=== PATIENT | female | born 1990 | race Caucasian/White ===

== ENCOUNTER 2024-01-14 17:21 | Inpatient (IN) ==
[2024-01-14] MEDS ORDERED: ACETAMINOPHEN 325 MG TAB PO PRN (17:53)
[2024-01-14 18:49] LABS: Basophils # (auto) 0.04 K/uL (0.00-0.20); Basophils % (auto) 0.4 %; Eosinophils % (auto) 0.9 %; Hematocrit (blood only) 40.6 % (37.0-47.0); Hemoglobin 13.5 g/dl (12.0-16.0); Immature Granulocytes # (auto) 0.28 K/uL (0.01-0.20); Immature Granulocytes % (auto) 2.5 %; Lymphocytes # (auto) 1.27 K/uL (1.20-3.40); Lymphocytes % (auto) 11.1 %; Mean Corpuscular Hemoglobin 30.2 pg (25.0-34.0); Mean Corpuscular Hgb Conc 33.3 g/dL (32.0-36.0); Mean Corpuscular Volume 90.8 fL (80.0-100.0); Mean Platelet Volume 11.4 fL (9.4-12.4); Monocytes # (auto) 0.81 K/uL (0.11-0.59); Monocytes % (auto) 7.1 %; Platelet Count 187 K/uL (130-400); RDW Coefficient of Variation 13.2 % (11.5-14.5); RDW Standard Deviation 43.4 fL (36.4-46.3); Red Blood Count 4.47 M/uL (4.20-5.40)
[2024-01-14 19:02] LABS: Albumin Globulin Ratio 1.1 (0.9-2); Albumin Level 3.4 gm/dl (3.4-5.0); BUN Creatinine Ratio 16.7 (10-20); Bilirubin,Total 0.3 mg/dl (0.2-1.0); Calcium 9.7 mg/dl (8.6-10.3); Creatinine Clr Calc Pharmacy 137.4 ml/min; Globulin 3.2 gm/dl (2.5-4.0); Potassium 3.8 mmol/L (3.5-5.1); Total Protein 6.6 gm/dl (6.0-8.3)
[2024-01-14] MEDS ORDERED: OXYTOCIN 30 UNITS/NSS 30 UNITS/500 ML BAG IV PRN (21:04)
[2024-01-14] MEDS ORDERED: LIDOCAINE 1% LOCAL 20 ML VIAL INFIL PRN (21:04)
--- NOTE | 2024-01-14 21:04 | History & Physical Report ---
Date of Service January 14, 2024 Assessment & Plan (1) 38 weeks gestation of : (2) Gestational hypertension: (3) Positive GBS test: Plan admit, iv, labs already reviewed. will send urine prot/creat ratio. begin pitocin and pcn. arom when appropriate. pt agrees. will allow diet as has not eaten History of Present Illness Chief Complaint: induction Primary Care Provider: Damarislesly Bo 33yo at 38+wks ega presents to LD after being seen in office with elevated bp, now meeting criteria for diagnosis of gest htn. She denies ling currently but has had mild ling off and on since weekend, never enough to take meds. No rom, no vb. +FM. Some nausea but no ruq tenderness. She had bp elevated after sitting twice now in past 4hrs at least and aware of recommendations for induction and agrees. PNC c/b 1. gbs pos 2. ирина 3 2002 PNL rhpos, ri, gbs pos OBH: x 1, this new FOB GYNH: hx of ирина 3, no stds Allergies Allergy/AdvReac Type Severity Reaction Status Date / Time No Known Allergies Allergy Verified 01/14/24 16:40 Home Medications Medication Instructions Recorded Confirmed Type prenat.vits,fish,qrk-lpal-lnhcp 1 tab PO DAILY 06/04/23 01/14/24 History Patient History Medical History (Updated 01/14/24 @ 21:03 by Deneen Garcia MD, FACOG) Migraines no aura or neuro sx Surgical History (Updated 01/14/24 @ 18:37 by Viviana Brumfield RN) H/O LEEP 2022 History of breast augmentation History of wisdom tooth extraction Family History (Updated 01/14/24 @ 18:02 by Viviana Brumfield RN) Grandmother (Maternal) Breast cancer Grandmother (Paternal) Diabetes Breast cancer Hypertension Aunt Ovarian cancer Aunt No problems noted. Father Hypertension Other Thyroid disease Denies family history of Prostate cancer Myocardial infarction Colorectal cancer Social History (Updated 06/04/23 @ 11:10 by Belle Richards) Smoking Status: Never smoker Second Hand Exposure: No; Do You Dip or Chew Tobacco: No; Hx Alcohol Use: No Hx Substance Use: No Preferred Language: Armenian Communication Ability: Effective Specialty Person Required: No Beliefs That Will Affect Care: None marital status: marital status details: Lit (34) [phone] Current Living Situation: Spouse and Family Current Living Situation Comment: and daughter current occupational status: employed current occupation: RN How many Children do You have: 1 Feels Safe at Home: Yes Safety Concerns: Feels Safe At This Time Diet: regular Physical Activity Frequency: 3-4 Times per Week Review of Systems as per Subjective / HPI Physical Exam Constitutional: WD/WN, vitals as above Respiratory: normal respiratory effort, lungs clear to auscultation Cardiovascular: Rate/Rhythm: regular rate and regular rhythm Gastrointestinal (Abdomen): soft gravid nt, no ruq pain efw 7-8# cephalic by u/s Musculoskeletal: tr edema nontender calves Neurologic: DTRs patellar +2, no clonus Psychiatric: A+Ox3, euthymic affect Genitourinary: Manual OB Exam: + cervical dilation 3 cm, + cervical effacement (75%) and + station -2 OB Exam Monitor Tracing: + external FHT monitor used, + external uterine monitor used, + category I and + normal FHT variability Results & Data Vital Signs (Past 12 Hours) Vital Signs Temp Pulse Resp BP 01/14/24 20:45 96 H 140/90 01/14/24 19:10 98.1 F 20 01/14/24 19:10 20 01/14/24 18:09 85 141/97 H 01/14/24 17:57 98.4 F 85 18 141/97 H 01/14/24 17:46 98.1 F 01/14/24 17:38 78 139/89 Coding Level of Care Code None Diagnoses 38 weeks gestation of Z3A.38 Gestational hypertension O13.9 Positive GBS test B95.1
[2024-01-14] MEDS: PENICILLIN GK 6 MU in SODIUM CHLORIDE 0.9% 250 ML IV STA (21:34)
[2024-01-14] MEDS: OXYTOCIN 30 UNITS/NSS 30 UNITS/500 ML BAG IV PRN (22:12)
[2024-01-14 22:36] LABS: Creatinine Urine Random 12.8 mg/dl; Total Protein Urine Random < 4.0 mg/dl (0-11.9)
[2024-01-15] MEDS: CALCIUM CARBONATE 500 MG CHEWABLE TAB PO PRN ×2 (00:32→17:18)
[2024-01-15] MEDS: PENICILLIN GK 3 MU in DEXTROSE 5% 100 ML IV PRN (01:24)
[2024-01-15] MEDS: fentANYL 2 MCG/ML BUPIVacaine 0.125%-NSS 100ML BAG ONE (02:05)
[2024-01-15] MEDS: LIDOCAINE 2%/EPINEPHRINE 1:200,000 20 ML PF ONE (02:05)
[2024-01-15] MEDS: fentaNYL citrate PF 100 MCG/2 ML VIAL ONE (02:18)
[2024-01-15] MEDS: BUPIVACAINE 0.25% PF 30 ML VIAL ONE (02:18)
[2024-01-15] MEDS: SODIUM CHLORIDE 0.9% PF INJ 10 ML VIAL ONE (02:18)
--- NOTE | 2024-01-15 02:22 | Anesthesiology Consultation ---
Date of Service January 15, 2024 Assessment & Plan Chart Review Chart Review: Acceptable Risk for Labor Epidural Consults Requested none History Height/Weight Height: 5 ft 5 in Weight: 95.708 kg Allergies Allergy/AdvReac Type Severity Reaction Status Date / Time No Known Allergies Allergy Verified 01/14/24 16:40 Medications Home Medications Medication Instructions Recorded Confirmed Last Taken prenat.vits,fish,kkt-ppmr-rtide 1 tab PO DAILY 06/04/23 01/14/24 01/13/24 20:30 Active Medications Generic Name Dose Route Start Last Admin Trade Name Freq PRN Reason Stop Dose Admin Calcium Carbonate 500 mg 01/14/24 17:53 01/15/24 00:32 Calcium Carbonate 500 Mg Chewable Tab PO 02/13/24 17:52 500 mg Q6H PRN Administration Indigestion Penicillin G Potassium 3 mu/ 106 mls @ 100 mls/hr 01/15/24 00:04 01/15/24 01:24 Dextrose IV 01/25/24 00:03 100 mls/hr Q4H PRN Administration GBS(+) Until Delivery Oxytocin 30 units in 500 mls @ 9 mls/hr 01/14/24 21:04 01/15/24 01:30 Pitocin 30 Units/Nss IV 01/16/24 21:03 0.66 units/hr .Q24H PRN 11 mls/hr Labor Induction/Augmentation Titration Protocol 0.54 UNITS/HR Past Medical History Medical History (Updated 01/14/24 @ 21:03 by Deneen Garcia MD, FACOG) Migraines no aura or neuro sx Past Family History Family History (Updated 01/14/24 @ 18:02 by Viviana Brumfield RN) Grandmother (Maternal) Breast cancer Grandmother (Paternal) Diabetes Breast cancer Hypertension Aunt Ovarian cancer Aunt No problems noted. Father Hypertension Other Thyroid disease Denies family history of Prostate cancer Myocardial infarction Colorectal cancer Past Surgical History Surgical History (Updated 01/14/24 @ 18:37 by Viviana Brumfield RN) H/O LEEP 2022 History of breast augmentation History of wisdom tooth extraction Social History Smoking Status: Never smoker Do You Dip or Chew Tobacco: No Hx Alcohol Use: No Hx Substance Use: No Physical Exam Vital Signs Last Vital Signs Temp 36.8 C 01/14/24 23:15 Pulse 84 01/15/24 02:20 Resp 18 01/14/24 23:15 BP 122/73 01/15/24 02:18 Pulse Ox 98 01/15/24 02:20 Testing Laboratory Results 01/14/24 18:32 01/14/24 18:32 Blood Type A Positive 01/14/24 18:32 Blood Type Cancelled 01/14/24 18:32 Antibody Screen Cancelled 01/14/24 18:32 Antibody Screen NEGATIVE 01/14/24 18:32
[2024-01-15] MEDS ORDERED: ePHEDrine sulfate 50 MG/ML AMP IV PRN (02:24)
[2024-01-15] MEDS ORDERED: LIDOCAINE 2% MPF LOCAL 5 ML VIAL EPI PRN (02:24)
[2024-01-15] MEDS ORDERED: diphenhydrAMINE 50 MG/ML VIAL IV PRN (02:24)
[2024-01-15] MEDS ORDERED: fentANYL 2 MCG/ML BUPIVacaine 0.125%-NSS 100ML BAG EPI PRN (02:24)
[2024-01-15] MEDS ORDERED: NALBUPHINE HCL INJ 10 MG/ML AMP IV PRN (02:24)
[2024-01-15] MEDS ORDERED: BUPIVACAINE 0.25% PF 30 ML VIAL EPI PRN (02:24)
[2024-01-15] MEDS ORDERED: SODIUM CHLORIDE 0.9% PF INJ 10 ML VIAL EPI PRN (02:24)
[2024-01-15] MEDS ORDERED: ROPIVACAINE 0.5% PF 5 MG/ML 20 ML VIAL EPI PRN (02:24)
[2024-01-15] MEDS ORDERED: NALOXONE HCL 0.4 MG/1 ML VIAL/CARP IV PRN (02:24)
[2024-01-15] MEDS ORDERED: fentaNYL citrate PF 100 MCG/2 ML VIAL EPI PRN (02:24)
[2024-01-15] MEDS ORDERED: NALOXONE HCL 1 MG in SODIUM CHLORIDE 0.9% 1,000 ML IV PRN (02:24)
[2024-01-15] MEDS: BUPIVACAINE 0.25% PF 30 ML VIAL EPI STA (03:27)
[2024-01-15] MEDS: LIDOCAINE 2%/EPINEPHRINE 1:200,000 20 ML PF EPI STA (03:28)
[2024-01-15] MEDS: fentaNYL citrate PF 100 MCG/2 ML VIAL EPI STA (03:28)
[2024-01-15] MEDS: SODIUM CHLORIDE 0.9% PF INJ 10 ML VIAL EPI STA (03:28)
--- NOTE | 2024-01-15 07:42 | Delivery Summary ---
Vaginal Delivery Summary Date of Service January 15, 2024 Vaginal Delivery Summary The patient dilated to complete and pushed to deliver a viable female Apgars 8 and 9 via over intact perineum. Double nuchal x 2 reduced at perineum, loose. Mouth and nose bulb suctioned at perineum. Shoulders and body delivered with ease. Infant was vigorous and crying at . Cord clamped at 30 seconds of life and infant to maternal abdomen where the cord was then doubly clamped and cut. Placenta delivered spontaneously and intact, three-vessel cord. Hemostasis achieved with dilute pitocin and uterine massage. Small vaginal laceration reapproximated with 3-0 vicryl. Cervix and sulci intact. QBL 220 cc. Mother and baby stable in recovery. [facility] Vaginal Delivery Charge Delivery Type Details:
[2024-01-15] MEDS ORDERED: oxyCODONE/ACETAMINOPHEN 5mg/325mg TAB PO PRN (07:58)
[2024-01-15] MEDS ORDERED: OXYTOCIN 30 UNITS/NSS 30 UNITS/500 ML BAG IV PRN (07:58)
[2024-01-15] MEDS ORDERED: HYDROCORTISONE ACETATE 25 MG SUPP PR PRN (07:58)
--- NOTE | 2024-01-15 08:02 | Anesthesia Procedure Note ---
Date of Service January 15, 2024 Anesthesia Post Epidural Note Vital Signs Vital Signs: Temp Pulse Resp BP Pulse Ox 97.7 F 82 20 141/90 H 97 01/15/24 07:02 01/15/24 08:00 01/15/24 07:02 01/15/24 08:00 01/15/24 07:32 Pain Intensity Lower Back: Pain Intensity: 6 Notes Mental Status: alert / awake / arousable and participated in evaluation Nausea / Vomiting: adequately controlled Pain: adequately controlled Airway Patency, RR, SpO2: stable & adequate BP & HR: stable & adequate Hydration State: stable & adequate Neuraxial Anesthesia: was administered and sensory block is resolving Anesthetic Complications: no major complications apparent and Pt Satisfied with anesthetic care Epidural: Removed without complications and With tip intact
[2024-01-15] MEDS: DIPHTHER/TETAN/PERTUS Vaccine (Tdap, Adol/Adult) 0.5mL IM ONE (08:27)
[2024-01-15] MEDS: ePHEDrine sulfate 50 MG/ML AMP ONE (08:27)
[2024-01-15] MEDS ORDERED: ONDANSETRON INJ 2 MG/ML 2 ML VIAL IV PRN (08:39)
[2024-01-15 09:15] LABS: Hematocrit (blood only) 36.9 % (37.0-47.0); Hemoglobin 12.5 g/dl (12.0-16.0); Mean Corpuscular Hemoglobin 30.7 pg (25.0-34.0); Mean Corpuscular Hgb Conc 33.9 g/dL (32.0-36.0); Mean Corpuscular Volume 90.7 fL (80.0-100.0); Mean Platelet Volume 11.8 fL (9.4-12.4); Platelet Count 174 K/uL (130-400); RDW Coefficient of Variation 13.1 % (11.5-14.5); RDW Standard Deviation 42.8 fL (36.4-46.3); Red Blood Count 4.07 M/uL (4.20-5.40); White Blood Count 14.19 K/ul (4.8-10.8)
[2024-01-15 10:36] LABS: Albumin Globulin Ratio 1.1 (0.9-2); BUN Creatinine Ratio 12.5 (10-20); Bilirubin Direct 0.1 mg/dl (0-0.2); Bilirubin,Total 0.4 mg/dl (0.2-1.0); Calcium 8.8 mg/dl (8.6-10.3); Globulin 2.7 gm/dl (2.5-4.0); Potassium 3.6 mmol/L (3.5-5.1); Total Protein 5.7 gm/dl (6.0-8.3)
[2024-01-15] MEDS: PRENATAL VITAMIN 1 TAB PO SCH (11:14)
[2024-01-15] MEDS: BENZOCAINE 20% SPRY 85 APPLN/85 GM CAN EXT PRN (11:14)
[2024-01-15] MEDS: DOCUSATE SODIUM 100 MG CAP PO SCH (11:14)
[2024-01-15] MEDS: ACETAMINOPHEN 325 MG TAB PO PRN (11:22)
[2024-01-15] MEDS: IBUPROFEN 600 MG TAB PO PRN (14:00)
[2024-01-15 21:04] VITALS: RESP 16
[2024-01-16 01:08] VITALS: O2SAT 97
--- NOTE | 2024-01-16 08:01 | Obstetrical Progress Note ---
Date of Service January 16, 2024 Assessment & Plan (1) Encounter for supervision of normal in multigravida: PPD#1 doing well. Desires DC home today. Reviewed instructions, followup 6w PP. Subjective Ambulation: ambulating normally Voiding: no voiding problems Diet Tolerance:: regular diet Lochia:: Moderate Review of Systems All systems reviewed & are unremarkable except as noted in HPI & below Physical Exam Constitutional WD/WN, vitals as above no acute distress Respiratory normal respiratory effort Cardiovascular Rate/Rhythm: regular rate and regular rhythm Gastrointestinal (Abdomen) Inspection/Auscultation: abdomen normal to inspection; abdomen not distended Percussion/Palpation: abdomen soft Genitourinary OB Exam Abdomen: + fundal height Fundus: + firm; not tender Results & Data Vital Signs (Past 12 Hours) Vital Signs Temp Pulse Resp BP Pulse Ox O2 Del Method 01/15/24 23:45 37.0 C 74 16 142/94 H 97 Room Air
[2024-01-16] MEDS: SIMETHICONE 80 MG CHEW PO ONE (10:24)
[2024-01-16 10:45] VITALS: BP 132/90; PULSE 82; TEMP 98.1
[2024-01-16] MEDS ORDERED: bisacodyL 5 MG TABEC PO SCH (20:00)
== END 2024-01-16 18:15 | disposition home or self-care (01) | DRG 807 ==
LOC: OPB 17:21 → 4S1 17:22 → 4E2 01-15 11:02